=== PATIENT | male | born 1960 | race Caucasian/White ===

== ENCOUNTER 2019-01-03 13:18 | Outpatient (REF) | payer OTHER, SELFPAY ==
[2019-01-03 19:02] LABS: ALT 64 U/L (12-78); Anion Gap 10.2 mmol/L (3-11); BUN 13 mg/dL (7-18); CO2 26.8 mmol/L (21.0-32.0); CREATININE 0.86 mg/dL (0.70-1.30); Calcium 9.1 mg/dL (8.5-10.1); Chloride 103 mmol/L (98-107); Glucose 90 mg/dL (70-100); LDL CHOLESTEROL 99 mg/dL (<100); Potassium 4.1 mmol/L (3.5-5.1); Sodium 140 mmol/L (136-145)
== END 2019-01-03 13:38 ==
LOC: NCHCN 13:18
PROVIDERS: PCP Internal Medicine; Visit Provider Internal Medicine
DX: E78.5 Hyperlipidemia, unspecified (principal); M19.90 Unspecified osteoarthritis, unspecified site; Z98.61 Coronary angioplasty status
CPT/HCPCS: 80048; 83721; 84460

== ENCOUNTER 2020-07-26 13:17 | Outpatient (REF) | payer OTHER, SELFPAY ==
[2020-07-26 20:09] LABS: Creatine Kinase 268 U/L (39-308)
[2020-07-26 20:10] LABS: ESR 18 mm/hr (1-20)
[2020-08-03 15:15] LABS: Rheumatoid Factor <15 IU/mL (<15)
[2020-08-03 15:16] LABS: Lyme Ab w Rflx to Lyme Confirm Negative (Negative)
[2020-08-03 15:18] LABS: CRP, High Sensitivity 3.7 mg/L (<2.0)
== END 2020-07-26 13:37 ==
LOC: NCHCN 13:17
PROVIDERS: PCP Internal Medicine; Visit Provider Nurse Practitioner Family
DX: T14.8XXA Other injury of unspecified body region, initial encounter (principal); W57.XXXA Bitten or stung by nonvenomous insect and other nonvenomous arthropods, initial encounter; M25.50 Pain in unspecified joint
CPT/HCPCS: 82550; 85652; 86141; 86431; 86618

== ENCOUNTER 2021-10-19 03:01 | Outpatient (CLI) | payer MEDICARE, SELFPAY ==
[2021-10-19 09:52] VITALS: BP 165/93; PULSE 65; RESP 16; TEMP 36.7; O2SAT 95
[2021-10-19 11:00] VITALS: BP 136/77; PULSE 54; RESP 16; TEMP 36.4; O2SAT 95
== END 2021-10-19 03:02 | disposition home or self-care (01) ==
LOC: INF 03:02
PROVIDERS: PCP Internal Medicine; Visit Provider Family Medicine
DX: U07.1 COVID-19 (principal)
CPT/HCPCS: 96365; Q0047

== ENCOUNTER 2022-07-14 16:36 | Outpatient (REF) | payer MEDICARE, SELFPAY ==
[2022-07-14 19:16] LABS: Anion Gap 9.7 mmol/L (3-11); BUN 15 mg/dL (7-18); CO2 24.3 mmol/L (21.0-32.0); CREATININE 0.8 mg/dL (0.70-1.30); Calcium 9.6 mg/dL (8.5-10.1); Calculated LDL 116 mg/dL (<100); Chloride 102 mmol/L (98-107); Cholesterol 182 mg/dL (<200); Estimated GFR 99.44 (mL/min/1.73m2); Glucose 98 mg/dL (74-106); HDL Cholesterol 34 mg/dL (40-60); Potassium 4.1 mmol/L (3.5-5.1); Sodium 136 mmol/L (136-145); Triglyceride 164 mg/dL (<150)
== END 2022-07-14 16:37 | disposition home or self-care (01) ==
LOC: NCHCN 16:36
PROVIDERS: PCP Internal Medicine; Visit Provider Internal Medicine
DX: E11.9 Type 2 diabetes mellitus without complications (principal); I10 Essential (primary) hypertension
CPT/HCPCS: 80048; 80061

== ENCOUNTER 2022-10-19 16:23 | Outpatient (REF) | payer MEDICARE, SELFPAY ==
[2022-10-19 18:55] LABS: Hemoglobin A1C 5.9 % (<5.7)
== END 2022-10-19 16:24 | disposition home or self-care (01) ==
LOC: NCHCN 16:23
PROVIDERS: PCP Internal Medicine; Visit Provider Internal Medicine
DX: E11.9 Type 2 diabetes mellitus without complications (principal); I10 Essential (primary) hypertension
CPT/HCPCS: 83036

== ENCOUNTER 2023-07-25 15:55 | Outpatient (REF) | payer MEDICARE, SELFPAY ==
[2023-07-25 20:36] LABS: ALT 64 U/L (16-63); Anion Gap 10.2 mmol/L (3-11); BUN 16 mg/dL (7-18); CO2 24.8 mmol/L (21.0-32.0); CREATININE 1.5 mg/dL (0.70-1.30); Calcium 9.5 mg/dL (8.5-10.1); Chloride 104 mmol/L (98-107); Creatine Kinase 399 U/L (39-308); Estimated GFR 51.67 (mL/min/1.73m2); Glucose 115 mg/dL (74-106); Potassium 4.2 mmol/L (3.5-5.1); Sodium 139 mmol/L (136-145)
[2023-07-25 20:50] LABS: Hemoglobin A1C 6.4 % (<5.7)
[2023-07-25 20:58] LABS: Calculated LDL 76 mg/dL (<100); Cholesterol 177 mg/dL (<200); HDL Cholesterol 28 mg/dL (40-60); Triglyceride 367 mg/dL (<150)
== END 2023-07-25 15:56 | disposition home or self-care (01) ==
LOC: NCHCN 15:55
PROVIDERS: PCP Internal Medicine; Visit Provider Internal Medicine
DX: E11.9 Type 2 diabetes mellitus without complications (principal)
CPT/HCPCS: 80048; 80061; 82550; 83036; 84460

== ENCOUNTER → 2023-10-17 07:56 | Outpatient (BNVA) | payer MEDICARE, SELFPAY | PROVIDERS: PCP Internal Medicine; Referring Provider Internal Medicine; Visit Provider Podiatrist | DX: S90.821A Blister (nonthermal), right foot, initial encounter (principal); L60.0 Ingrowing nail; L84 Corns and callosities; B35.1 Tinea unguium; L60.3 Nail dystrophy; E11.9 Type 2 diabetes mellitus without complications | CPT/HCPCS: 99214 ==

== ENCOUNTER → 2023-10-30 08:15 | Outpatient (BNVA) | payer MEDICARE, SELFPAY | PROVIDERS: PCP Internal Medicine; Referring Provider Internal Medicine; Visit Provider Podiatrist | DX: L60.0 Ingrowing nail (principal); S90.821A Blister (nonthermal), right foot, initial encounter; E11.9 Type 2 diabetes mellitus without complications; M79.675 Pain in left toe(s); X58.XXXA Exposure to other specified factors, initial encounter | CPT/HCPCS: 11750 ==

== ENCOUNTER → 2023-11-14 08:12 | Outpatient (BNVA) | payer MEDICARE, SELFPAY | PROVIDERS: PCP Internal Medicine; Referring Provider Internal Medicine; Visit Provider Podiatrist | DX: Z09 Encounter for follow-up examination after completed treatment for conditions other than malignant neoplasm (principal); L60.0 Ingrowing nail; S90.821A Blister (nonthermal), right foot, initial encounter; E11.9 Type 2 diabetes mellitus without complications; M79.675 Pain in left toe(s) | CPT/HCPCS: 99214 ==

== ENCOUNTER → 2024-02-13 08:14 | Outpatient (BNVA) | payer MEDICARE, SELFPAY | PROVIDERS: PCP Internal Medicine; Referring Provider Internal Medicine; Visit Provider Podiatrist | DX: E11.8 Type 2 diabetes mellitus with unspecified complications (principal); L60.0 Ingrowing nail; S90.821A Blister (nonthermal), right foot, initial encounter; M79.675 Pain in left toe(s); X58.XXXA Exposure to other specified factors, initial encounter; M79.674 Pain in right toe(s); L60.3 Nail dystrophy; R20.2 Paresthesia of skin; R09.89 Other specified symptoms and signs involving the circulatory and respiratory systems; L65.9 Nonscarring hair loss, unspecified; R60.0 Localized edema | CPT/HCPCS: 11721 ==

== ENCOUNTER → 2024-06-10 08:30 | Outpatient (BNVA) | payer MEDICARE, SELFPAY | PROVIDERS: PCP Internal Medicine; Referring Provider Internal Medicine; Visit Provider Podiatrist | DX: E11.69 Type 2 diabetes mellitus with other specified complication (principal); M79.674 Pain in right toe(s); M79.675 Pain in left toe(s); L60.3 Nail dystrophy; B35.1 Tinea unguium; L84 Corns and callosities; R09.89 Other specified symptoms and signs involving the circulatory and respiratory systems; L60.8 Other nail disorders; L65.9 Nonscarring hair loss, unspecified; R60.0 Localized edema; I83.891 Varicose veins of right lower extremity with other complications; I83.892 Varicose veins of left lower extremity with other complications; R23.4 Changes in skin texture; R20.9 Unspecified disturbances of skin sensation; R20.2 Paresthesia of skin | CPT/HCPCS: 11056; 11721 ==

== ENCOUNTER → 2024-09-29 10:02 | Outpatient (BNVA) | payer MEDICARE, SELFPAY | PROVIDERS: PCP Internal Medicine; Referring Provider Internal Medicine; Visit Provider Podiatrist | DX: L60.3 Nail dystrophy; E11.8 Type 2 diabetes mellitus with unspecified complications; M79.674 Pain in right toe(s); M79.675 Pain in left toe(s); I73.89 Other specified peripheral vascular diseases; B35.1 Tinea unguium; L85.8 Other specified epidermal thickening; R09.89 Other specified symptoms and signs involving the circulatory and respiratory systems; L65.9 Nonscarring hair loss, unspecified; R60.0 Localized edema; L60.2 Onychogryphosis | CPT/HCPCS: 11056; 11721 ==

== ENCOUNTER → 2025-01-28 08:03 | Outpatient (BNVA) | payer MEDICARE, SELFPAY | PROVIDERS: PCP Internal Medicine; Referring Provider Internal Medicine; Visit Provider Podiatrist | DX: E11.8 Type 2 diabetes mellitus with unspecified complications (principal); L60.3 Nail dystrophy; M79.674 Pain in right toe(s); M79.675 Pain in left toe(s); I73.89 Other specified peripheral vascular diseases; R09.89 Other specified symptoms and signs involving the circulatory and respiratory systems; L65.9 Nonscarring hair loss, unspecified; I83.93 Asymptomatic varicose veins of bilateral lower extremities; R60.0 Localized edema; R23.8 Other skin changes; L60.2 Onychogryphosis; L85.8 Other specified epidermal thickening | CPT/HCPCS: 11055; 11721 ==

== ENCOUNTER 2025-01-28 20:49 | Outpatient (REF) | payer MEDICARE, SELFPAY ==
[2025-01-28 22:07] LABS: Anion Gap 6.6 mmol/L (3-11); BUN 13 mg/dL (7-18); CO2 27.4 mmol/L (21.0-32.0); CREATININE 0.9 mg/dL (0.70-1.30); Calcium 9.6 mg/dL (8.5-10.1); Calculated LDL 103 mg/dL (<100); Chloride 104 mmol/L (98-107); Cholesterol 174 mg/dL (<200); Estimated GFR 94.19 (mL/min/1.73m2); Glucose 101 mg/dL (74-106); HDL Cholesterol 30 mg/dL (>or=40); Potassium 4.5 mmol/L (3.5-5.1); Sodium 138 mmol/L (136-145); Triglyceride 206 mg/dL (<150)
== END 2025-01-28 20:50 | disposition home or self-care (01) ==
LOC: NCHCN 20:49
PROVIDERS: PCP Internal Medicine; Visit Provider Internal Medicine
DX: E11.9 Type 2 diabetes mellitus without complications (principal)
CPT/HCPCS: 80048; 80061

== ENCOUNTER 2025-04-20 15:32 | Outpatient (CLI) | payer MEDICARE, SELFPAY ==
--- NOTE | 2025-04-20 15:55 | DI.RAD_ITS ---
Exam(s) XR KNEE LT 4V AP,LAT,KEE,PAT EXAM: XR KNEE LT 4V AP,LAT,KEE,PAT CLINICAL HISTORY: left knee pain. TECHNIQUE: 2D digital imaging was performed. COMPARISON: No exams were available for comparison FINDINGS: Four views There is no evidence of acute fracture or obvious joint effusion. There are advanced osteoarthritic degenerative changes in the medial compartment with [id number] narrowing. There also advanced degenerative changes in the patellofemoral compartment. Less degenerative change evident in the lateral compartment. Bone density normal. No osseous lesions. Calcification in the femoral and popliteal arteries noted. IMPRESSION: No fractures nor obvious joint effusion. Advanced degenerative changes in the medial and patellofemoral compartments. DATA REPOSITORY: RADIATION DOSE DELIVERED:
--- NOTE | 2025-04-20 15:55 | DI.RAD_ITS ---
Exam(s) XR STANDING ALIGNMENT EXAM: XR STANDING ALIGNMENT CLINICAL HISTORY: left knee pain. TECHNIQUE: 2D digital imaging was performed. COMPARISON: CR XR KNEE 4 VIEW LEFT from 04/14/2019 FINDINGS: 3 views There is moderate-advanced narrowing of the medial compartment the left knee again noted, similar to 2019. The lateral compartment of the left knee continues to exhibit preserved height. There is mild narrowing of the medial compartment of the opposite-right knee, unchanged from 2019 and there is again noted preservation of height of the lateral compartment of the right knee. There are danced degenerative changes in the right hip. Moderate-advanced degenerative changes in the left hip. Ankles appear unremarkable. Bone density normal. No osseous lesions. IMPRESSION: Degenerative changes in the medial compartments of both knees but with minimal if any significant radiographic change compared to images of March 2019. There are also significant degenerative changes in the hip joints, more so on the right side. DATA REPOSITORY: RADIATION DOSE DELIVERED:
== END 2025-04-20 15:33 | disposition home or self-care (01) ==
LOC: DIORS 15:32
PROVIDERS: PCP Internal Medicine; Referring Provider Internal Medicine; Visit Provider Student in an Organized Health Care Education/Training Program
DX: M25.562 Pain in left knee (principal); M17.12 Unilateral primary osteoarthritis, left knee; Z98.890 Other specified postprocedural states; E11.9 Type 2 diabetes mellitus without complications; I10 Essential (primary) hypertension
CPT/HCPCS: 99214; 73564; 77073

== ENCOUNTER → 2025-06-02 07:59 | Outpatient (BNVA) | payer MEDICARE, SELFPAY | PROVIDERS: PCP Internal Medicine; Referring Provider Internal Medicine; Visit Provider Podiatrist | DX: L60.3 Nail dystrophy (principal); B35.1 Tinea unguium; M79.674 Pain in right toe(s); M79.675 Pain in left toe(s); E11.8 Type 2 diabetes mellitus with unspecified complications; I73.89 Other specified peripheral vascular diseases; R09.89 Other specified symptoms and signs involving the circulatory and respiratory systems; L65.9 Nonscarring hair loss, unspecified; I83.93 Asymptomatic varicose veins of bilateral lower extremities; R60.0 Localized edema; R23.4 Changes in skin texture; L60.2 Onychogryphosis; L85.8 Other specified epidermal thickening | CPT/HCPCS: 11055; 11721 ==

== ENCOUNTER 2025-06-05 01:07 | Outpatient (CLI) | payer MEDICARE, SELFPAY ==
[2025-06-05 12:26] LABS: HCT 47.0 % (40.0-50.0); HGB 16.7 g/dL (13.5-17.5); MCH 31.0 pg (27.0-33.0); MCHC 35.5 % (32.0-36.0); MCV 87 fL (80-95); MPV 9.6 fL (8.0-11.0); Platelet Count 256 10^3/uL (130-400); RBC 5.38 10^6/uL (4.36-5.78); RDW 13.0 % (11.8-14.1); RDW-SD 41.3 fL; WBC 9.57 10^3/uL (4.4-10.8)
[2025-06-05 13:22] LABS: Anion Gap 9.2 mmol/L (3-11); BUN 11 mg/dL (7-18); CO2 25.8 mmol/L (21.0-32.0); Calcium 9.3 mg/dL (8.5-10.1); Chloride 104 mmol/L (98-107); Estimated GFR 97.61 (mL/min/1.73m2); Glucose 104 mg/dL (74-106); Potassium 4.4 mmol/L (3.5-5.1); Sodium 139 mmol/L (136-145)
== END 2025-06-05 01:08 | disposition home or self-care (01) ==
LOC: LBO 01:08
PROVIDERS: PCP Internal Medicine; Visit Provider Student in an Organized Health Care Education/Training Program
DX: M17.12 Unilateral primary osteoarthritis, left knee (principal); Z01.818 Encounter for other preprocedural examination; I73.9 Peripheral vascular disease, unspecified
CPT/HCPCS: 36415; 80048; 85027

== ENCOUNTER 2025-06-26 09:50 | Day surgery (SDC) | payer MEDICARE, SELFPAY ==
[2025-06-26] VITALS (28 sets, daily range): BP systolic 145–177; BP diastolic 62–89; PULSE 59–78; RESP 9–24; TEMP 36.4–36.8; O2SAT 93–98; BMI 39.2
--- NOTE | 2025-06-26 07:29 | W.PM.DSUDISC ---
Date of service: 06/26/25 Discharge Plan Disposition Patient Disposition: Home Condition: Good Discharge Details Reason For Visit: L MORR Attending Provider: Carlos Cee Primary Care Provider: Robbin Ross Home Meds and New Rx's Prescriptions: New meloxicam 15 mg tablet 15 mg PO DAILY Qty: 30 0RF aspirin 81 mg tablet,delayed release (DR/EC) 81 mg PO BID Qty: 60 0RF acetaminophen 500 mg tablet 1,000 mg PO TID Qty: 90 0RF dexamethasone 4 mg tablet 4 mg PO DAILY Qty: 2 0RF gabapentin 300 mg capsule 300 mg PO QHS Qty: 14 0RF oxycodone 10 mg tablet 10 mg PO Q4H MDD 6 tabs PRN (Reason: pain) Qty: 18 0RF pantoprazole 40 mg tablet,delayed release (DR/EC) 40 mg PO DAILY Qty: 14 0RF Continued famotidine 40 mg tablet 40 mg PO DAILY nitroglycerin [Nitrostat] 0.4 mg tablet, sublingual 0.4 mg sublingual Q5M PRN Rx Instructions: do not exceed 3 doses per episode amlodipine 5 mg tablet 5 mg PO DAILY enalapril maleate 10 mg tablet 10 mg PO DAILY fluticasone propionate 50 mcg/actuation blister with device 2 inh inhalation DAILY metoprolol succinate 200 mg tablet extended release 24 hr 200 mg PO DAILY pravastatin 40 mg tablet 80 mg PO DAILY epinephrine [EpiPen] 0.3 mg/0.3 mL auto-injector 0.3 mg IM ONCE Rx Instructions: as a single dose; may repeat once Mounjaro 10 mg/0.5 mL pen injector 10 mg subcut QWEEK ketoconazole 2 % cream 1 applic topical DAILY Qty: 60 5RF Rx Instructions: Apply to toenails once daily; apply separately from Urea. cetirizine [Zyrtec] 10 mg tablet 10 mg PO DAILY PRN docusate sodium [Colace] 100 mg capsule 100 mg PO BID Emergen-C Immune Plus 1,000 mg powder effervescent in packet 1 packet PO DIRECTED PRN Discontinued hydrocodone-acetaminophen 7.5-325 mg tablet 1 tab PO BID PRN aspirin 81 mg tablet,delayed release (DR/EC) 81 mg PO DAILY Discharge Instructions Additional Instructions: Total Knee Discharge Instructions Activity: The most important activity is to walk and to work on gentle motion (both flexion and extension). You should try to take short walks a few times a day. It is important that when resting you work on keeping the knee straight. Avoid putting a pillow behind the knee as this will encourage flexion. Work on range of motion exercises as provided by Physical Therapy. - Start outpatient physical therapy within 2 weeks. - You should wear the KIANA hose on both legs for 2 weeks. You may remove these at night. You may also use any compression sock in place of the KIANA hose. - Utilize [employer] to review exercises, see videos on exercises and obtain basic information pertaining to your surgery and your recovery. Dressing: Remove the Rj wrap by 2 days after your surgery and put on the KIANA stocking given to you from the hospital. Keep the surgical dressing (underneath the RJ wrap) in place for at least one week. After the first week it may be removed and replaced with light gauze and tape or nothing. The wound and dressing may get wet after 3 days but avoid soaking the dressing or otherwise it will need to be changed. Many people prefer covering the dressing with cling wrap (saran wrap) to minimize it from getting soaked. If it gets wet, just pat dry. If it starts to peel off then it will need to be changed. Medications: - You should take Tylenol and anti-inflammatory meloxicam as your primary pain control medications. - You have been prescribed a stronger pain medication Oxycodone for breakthrough pain, take as needed as prescribed. - You have also been prescribed a stomach acid reduction agent Pantoprozole to help reduce stomach acid and reflux. - You have been prescribed Gabapentin to take at night for restlessness and nerve pain. - You will be taking Aspirin 81mg twice a day for DVT prevention unless instructed otherwise. - You have also been prescribed Decadron to take to control post-operative nausea and pain. You will start this tomorrow. - If you have constipation you should take Colace or Miralax (both [id number]). It takes most people 3-4 days to have a bowel movement. Follow-up: 2 weeks If you have any acute concerns or questions, please do not hesitate to contact the office at [phone]. You may contact Dr. Cee with any questions after hours through the hospital at [phone] or on his cell phone at [phone]. Referrals: Carlos Cee MD [ [facility] STAFF PHYSICIAN, Orthopaedic Surgical] Equipment/Supplies: Walker Activity:: Activity as Tolerated Diet:: As Tolerated Discharge Orders Discharge Orders: Discharge Order (Routine); Ordered 06/26/25 Ordered By: Daniel Rojo DS: Diagnosis Discharge Diagnosis (1) Left knee DJD: Status: Chronic
[2025-06-26] MEDS: Acetaminophen 500 MG TAB 1000 MG PO (10:20)
[2025-06-26] MEDS: Gabapentin 300 MG CAP PO (10:20)
[2025-06-26] MEDS: Lactated Ringers 1,000 ML 80 ML IV (10:20)
[2025-06-26] MEDS: Celecoxib 200 MG CAP 400 MG PO (10:20)
--- NOTE | 2025-06-26 10:47 | W.ANESPRE ---
General Info Date of Service Date Performed: 06/26/25 Height: 5 ft 10 in Weight: 123.9 kg Body Mass Index (BMI): 39.2 Surgical Procedure: Operation Date: 06/26/25 12:10 Proposed Procedure Side Surgeon p Knee Total Arthroplasty Left Carlos Cee MD Actual Procedure Side Surgeon p Knee Total Arthroplasty Left Carlos Cee MD Pre-Op Diagnosis Post-Op Diagnosis Left knee DJD Meds Allergies and Home Medications Allergies Allergy/AdvReac Type Severity Reaction Status Date / Time bee venom protein (honey bee) Allergy Severe Anaphylaxis Verified 06/26/25 10:01 Home Medication ?Medication ?Instructions ?Recorded amlodipine 5 mg tablet 5 mg PO DAILY 08/08/22 famotidine 40 mg tablet 40 mg PO DAILY 08/08/22 nitroglycerin 0.4 mg sublingual 0.4 mg sublingual Q5M PRN 08/08/22 tablet (Nitrostat) metoprolol succinate 200 mg 200 mg PO DAILY 03/15/23 tablet,extended release 24 hr enalapril maleate 10 mg tablet 10 mg PO DAILY 11/14/23 fluticasone propionate 50 2 inh inhalation DAILY 06/09/24 mcg/actuation blister powder for inhalation epinephrine 0.3 mg/0.3 mL 0.3 mg IM ONCE 05/29/25 injection, auto-injector (EpiPen) tirzepatide 10 mg/0.5 mL 10 mg subcut QWEEK 05/29/25 subcutaneous pen injector (Mounjaro) ketoconazole 2 % topical cream 1 applic topical DAILY #60 grams 06/02/25 ascorbic acid 1,000 1 packet PO DIRECTED PRN 06/05/25 cc-tnuzdzzodlnc-chjxlyxi powder effervescent pack (Emergen-C Immune Plus) cetirizine 10 mg tablet (Zyrtec) 10 mg PO DAILY PRN 06/05/25 docusate sodium 100 mg capsule 100 mg PO BID 06/05/25 (Colace) pravastatin 40 mg tablet 80 mg PO DAILY 06/05/25 acetaminophen 500 mg tablet 1,000 mg (2 x 500 mg) PO TID #90 06/26/25 tabs aspirin 81 mg tablet,delayed 81 mg PO BID #60 tabs 06/26/25 release aspirin 81 mg tablet,delayed 81 mg PO DAILY 06/26/25 release (Adult Low Dose Aspirin) dexamethasone 4 mg tablet 4 mg PO DAILY #2 tabs 06/26/25 gabapentin 300 mg capsule 300 mg PO QHS #14 caps 06/26/25 hydrocodone 7.5 mg-acetaminophen tab 06/26/25 325 mg tablet meloxicam 15 mg tablet 15 mg PO DAILY #30 tabs 06/26/25 oxycodone 10 mg tablet 10 mg PO Q4H PRN pain #18 tabs 06/26/25 pantoprazole 40 mg tablet,delayed 40 mg PO DAILY #14 tabs 06/26/25 release Current Visit Medications: Current Medications Generic Name Dose Route Start Last Admin Trade Name Freq PRN Reason Stop Dose Admin Acetaminophen 1,000 mg 06/26/25 06:00 06/26/25 10:20 Acetaminophen 500 Mg Tab PO 06/26/25 23:59 1,000 mg PREOP JUAN C Administration Acetaminophen 1,000 mg 06/26/25 07:28 Acetaminophen 500 Mg Tab PO 07/26/25 07:27 TID PRN PRN Analgesia Celecoxib 400 mg 06/26/25 06:00 06/26/25 10:20 Celecoxib 200 Mg Cap PO 06/26/25 23:59 400 mg PREOP JUAN C Administration Docusate Sodium 100 mg 06/26/25 07:28 Docusate Sodium 100 Mg Cap PO 07/26/25 07:27 BID PRN PRN Constipation Gabapentin 300 mg 06/26/25 06:00 06/26/25 10:20 Gabapentin 300 Mg Cap PO 06/26/25 23:59 300 mg PREOP JUAN C Administration Ringer's Solution 1,000 mls @ 80 mls/hr 06/26/25 06:00 06/26/25 10:20 IV 06/26/25 23:59 80 mls/hr INFUSION JUAN C Administration Cefazolin Sodium/Dextrose 2 gm in 50 mls @ 100 mls/hr 06/26/25 06:00 Ancef Duplex IVPB 06/26/25 23:59 PREOP JUAN C Tranexamic Acid/Sodium Chloride 1,000 mg in 100 mls @ 600 mls/hr 06/26/25 06:00 IVPB 06/26/25 23:59 PREOP JUAN C IV Miscellaneous Supplies 1 each 06/26/25 06:00 Iv Access IV 06/26/25 23:59 DIRECTED JUAN C Ondansetron HCl 4 mg 06/26/25 07:28 Ondansetron 4 Mg/2 Ml Vial IVP 07/26/25 07:27 Q6H PRN PRN Nausea Oxycodone HCl 0 mg 06/26/25 07:28 Oxycodone 5 Mg Tab PO 07/26/25 07:27 Q3H PRN PRN Pain Polyethylene Glycol 17 gm 06/26/25 07:28 Polyethylene Glycol 3350 17 Gm Packet PO 07/26/25 07:27 BID PRN PRN Constipation Sodium Chloride 0 ml 06/26/25 06:00 Normal Saline Flush 10 Ml Syr IV 06/26/25 23:59 PRN PRN Sodium Chloride 0 ml 06/26/25 06:00 Normal Saline 10 Ml Vial IJ 06/26/25 23:59 DIRECTED PRN Sterile Water 0 ml 06/26/25 06:00 Water,Injection,Sterile 10 Ml Vial IJ 06/26/25 23:59 DIRECTED PRN PFSH Active Problems Active Problems: Problem Status Onset Code Allergic rhinitis Acute J30.9 Adjustment disorder Chronic F43.20 Nicotine dependence Acute F17.200 Hyperlipemia Acute E78.5 Left knee DJD Chronic M17.12 Peripheral vascular disease Chronic I73.9 Edema Acute R60.9 Degeneration of cervical intervertebral disc Acute M50.30 Obesity Chronic E66.9 Blister (nonthermal), right foot, initial encounter Acute S90.821A Ingrown toenail Acute L60.0 Type 2 diabetes mellitus Acute E11.9 Corns and callosities Acute L84 Toe pain, left Acute M79.675 Toe pain, right Acute M79.674 CAD (coronary artery disease) Chronic I25.10 Hypercholesterolemia Acute E78.00 Hypertension Chronic I10 Onychomycosis Acute B35.1 GERD (gastroesophageal reflux disease) Chronic K21.9 Nail dystrophy Acute L60.3 Surgical History Surgical History History of arthroscopy of left knee (05/12/19) History of angioplasty cardiac angioplasty with stents 2000-Follows up with cardiology annually with Dr. Herrera at [facility] 03/2025 was last follow up per History of eye surgery History of cholecystectomy Tobacco Smoking/Tobacco Use Status: Former Tobacco Use Passive smoking exposure: No Alcohol Alcohol Intake: current Alcohol intake frequency: holidays/special occasions only Alcohol type: beer Substance Use Substance use: Occasionally Substance use type: marijuana Details: Gummies: t-1 . Alcohol: t-2, one bear Vital Signs and Lab Results Vital Signs Most Recent Vital Signs in EMR: Most Recent Vital Signs Temp Pulse Resp BP Pulse Ox 36.4 C L 73 20 155/89 H 98 06/26/25 10:08 06/26/25 10:08 06/26/25 10:08 06/26/25 10:08 06/26/25 10:08 Point of Care Results Point of Care Results: Finger Stick Blood Glucose 99 06/26/25 10:14 Lab Results Complete Blood Count: WBC, (4.4-10.8) 9.57 10^3/uL 06/05/25, 12:09 RBC, (4.36-5.78) 5.38 10^6/uL 06/05/25, 12:09 Hgb, (13.5-17.5) 16.7 g/dL 06/05/25, 12:09 Hct, (40.0-50.0) 47.0 % 06/05/25, 12:09 Plt Count, (130-400) 256 10^3/uL 06/05/25, 12:09 Complete Metabolic Panel: Sodium, (136-145) 139 mmol/L 06/05/25, 12:09 Potassium, (3.5-5.1) 4.4 mmol/L 06/05/25, 12:09 Chloride, (98-107) 104 mmol/L 06/05/25, 12:09 Carbon Dioxide, (21.0-32.0) 25.8 mmol/L 06/05/25, 12:09 BUN, (7-18) 11 mg/dL 06/05/25, 12:09 Creatinine, (0.70-1.30) 0.8 mg/dL 06/05/25, 12:09 Est GFR (CKD-EPI 2020), (mL/min/1.73m2) 97.61 06/05/25, 12:09 Calcium, (8.5-10.1) 9.3 mg/dL 06/05/25, 12:09 Glucose, (74-106) 104 mg/dL 06/05/25, 12:09 Anesthesia Assessment and Plan Anesthesia History Personal History: No History of Anesthesia Complications Family History: No Family History of Anesthesia Complications Exercise Tolerance Exercise Tolerance: Metabolic Equivalents>4 Pertinent Negatives Pertinent Negatives: No Symptoms of GERD Cardiac & Pulmonary Exam Cardiac Exam: Normal S1/S2 Heart Sounds Pulmonary Exam: Clear Bilateral Breath Sounds Implantable Cardiac Device Does patient have a Pacemaker or an ICD?: No Airway Exam Known Difficult Airway: No Mallampati Class: 2 Mouth Opening: Normal (> 3cm) Thyromental Distance: Less than 3 cm Neck Range of Motion: Full ROM Neck Circumference: Normal Teeth Condition: Normal Dentition and Generalized Poor Dentition ASA Classification ASA Score: ASA 3 Emergency Case?: No NPO Status NPO Status: NPO Clears >2 hours, Solids >8 hours Anesthesia Plan Resuscitation Status: Full Code Anesthesia Technique: Spinal Anesthesia Airway Planned: Natural Airway Pain Management: Surgeon and patient request nerve block Monitors Used: Standard Monitors
[2025-06-26] MEDS: ceFAZolin 2 GM/50 ML BAG IVPB (11:09)
[2025-06-26] MEDS: TRANEXAMIC ACID/SOD. CHL. 1,000 MG/100 ML BAG 600 MG IVPB (11:30)
--- NOTE | 2025-06-26 13:04 | W.PM.OP ---
Operative Note Operative Note PRE-OP DIAGNOSIS: LEFT Knee Osteoarthritis POST-OP DIAGNOSIS: same PROCEDURE: Left Total Knee Replacement SURGEON: Carlos Cee BALANCE WHEEL ARM BURNISHER: Harmony Rojo ANESTHESIA TYPE: Spinal Refer to Anesthesia Record ESTIMATED BLOOD LOSS: 50 PATHOLOGY: none sent TOURNIQUET TIME: 0 COMPLICATIONS: None Patient was transported to: PACU Patient's condition: stable Implants: 1. Depuy Attune Cementless Cruciate Retaining Femoral Component, Size 7 2. Depuy Attune Cementless Fixed Bearing Tibial Component, Size 8 3. Depuy Attune 7x6mm CR/FB Poly 4. Depuy Attune Patellar Component, Size 41mm Indications: I have seen Eddie in clinic for symptoms of knee arthritis, confirmed with radiographic findings. He has exhausted nonoperative methods and was having significant limitations in daily function and desired better function and less pain. I discussed the technical details of a knee replacement. I explained the risks of the procedure to include, but not limited to, bleeding, infection, pain, stiffness, fracture, damage to nerves and vessels, damage to muscles and tendons, loosening, need for repeat procedure, blood clot and cardiopulmonary demise. Despite these risks, Eddie elected to proceed. Findings: There was significant signs of arthritis throughout the knee involving all 3 compartments. Procedure Description: Eddie was greeted in the preoperative holding area where the correct side was identified and marked. The consent was reviewed with the patient and signed. The history and physical was updated. All questions were answered. Preoperative medications were administered: Acetaminophen 1000mg, Celebrex 400mg, and Gabapentin 300mg. An adductor canal block was then administered by the anesthesia team in the DSU. He was taken back to the operating room. A spinal anesthestic was then administered. The patient was placed into the supine position on the operating room table. Posts were placed for positioning during the procedure. All bony prominences were well padded. Prophylactic antibiotics in the form of Cefazolin were administered. 1g of Tranxemic Acid was given intravenously within 30 minutes of incision. The left leg was then prepped with Chloraprep and draped in a standard fashion with impervious stockinette. A second prep with Chloraprep was performed prior to application of Iodine impregnated skin protection. A timeout to confirm correct identity, side and site, procedure, allergies, anesthesia, and medical concerns was performed. With the knee in some flexion, a midline incision was made overlying the knee. Full thickness skin flaps were raised once the extensor mechanism was encountered. These were raised medially and laterally. Any bleeding was controlled with electrocautery. Once the extensor mechanism was fully exposed, a medial parapatellar arthrotomy was performed in a flexed position. All bleeding from the arthrotomy and the geniculate arteries was coagulated. A medial subperiosteal peel was performed with electrocautery to the midcoronal plane. Due to the significant varus deformity the entire medial tibial plateau was exposed. The fat pad was removed while keeping the patellar tendon protected. The anterior distal femur synovium was removed for later visualization. The ACL and PCL were resected and the anterior horn of the lateral meniscus was transected. The knee was then flexed with the patella everted. Large osteophytes from the tibia were removed. Large osteophytes from the femur were removed. Using a step drill, and based on preoperative templating, the femoral canal was entered. This was done with a step drill without any difficulty. The intramedullary distal femoral cut guide was inserted, set to a 6 degree valgus cut and 9mm cut thickness. The distal femoral cut guide was then held in position and pinned. With the soft tissues protected, the distal cut was performed. This was passed over a few times to ensure a planar cut. I then turned attention to the tibia. The extramedullary guide was placed onto the leg. The distal aspect was slid medial to adjust for position of center of ankle and stay in line with shaft of the tibia. Approximately 5 degrees of posterior slope was kept in the proximal cutting guide. The center of the guide was aligned with the PCL. The stylus was used to assess cut thickness. The medial side, most involved side, was set for a 4mm cut. This was then held in position and pinned into place with 2 additional pins and a cross pin for stability. The medial and lateral collateral ligaments were protected and the cut was performed. With this completed, it was assessed and noted to be of appropriate dimensions. The guide was removed. A spacer block was inserted and the knee was brought into extension. The 6mm spacer block provided full extension, without hyperextension and with stability of both the medial and lateral collateral ligaments was assessed. The pins from the femur and the tibia were then removed. The distal femur was then sized. The anterior stylus was placed onto the lateral ridge of the anterior femur. This indicated a size 7 femur. The external rotation of the guide was adjusted to 0 degrees to match the epicondylar axis, perpendicular to [place]?s line. The 4-in-1 cutting guide was the placed. The posterior medial femur cut was evaluated and appeared of good thickness. The spacer block was inserted underneath the cutting guide and stability was confirmed in 90 degrees of flexion. An ester wing was used to confirm appropriate position of the anterior cut to avoid notching. This cutting guide was ensured to be flush on the cut surface and then pinned into place with headed pins. While protecting the soft tissues, quad tendon, and collateral ligaments, the anterior and posterior cuts were performed with a saw. The central two pins were removed and the posterior and anterior chamfers were cut next. The notch-cutting guide was placed. This was pinned to lateralize the femoral component as much as possible while keeping it flush on the cut surface. This was then pinned into position. A reciprocating saw was used to make the notch cut. A rasp smoothed the cut surfaces. The medial and lateral menisci were removed. A trial femoral component was then inserted, impacted down to the cut surfaces, and the lug holes were drilled. A provisional trial tibial component was placed and the knee was brought through range of motion. There was noted to be excellent extension and flexion. There was no significant instability. The patella was tracking without thumbs. A size 6mm polyethylene component provided the best range of motion and stability with less than 2mm gapping with medial and lateral stress and full extension without significant hyperextension. The tibial cut surface was fully exposed. The tibia was then sized as a 8. The tibia had been previously marked during trialing to correspond to the center of the tibial component to help with rotation. The trial was aligned to this harmony, approximately rotated to the medial 1/3rd of the tibial tubercle. The trial was pinned into place. The tibia was prepared with a reamer and a keel punch and lug holes. The knee was then brought into extension and the patella was measured as 31mm. Using the patellar clamp and cut guide, this was resected to a flat surface with at least 13mm of thickness remaining. The size 41mm patella fit the best. This was oriented and then clamped into position. The lugs were drilled. The trial components were removed. The final components were opened on the back table. The periosteal and capsular tissues, especially posteriorly, around the knee were then systematically injected with a periarticular cocktail consisting of 246mg of Ropivacaine, 0.5mg of Epinephrine, 0.08mg of Clonidine, and 30mg of Ketorolac, diluted to 100cc. On the back table, with the implants opened. The cement was mixed. One batch of high viscosity cement was prepared with vacuum assistance. After the cement was ready a small amount was placed on the cut surface of the patella and the patellar button was clamped into position and held. The cementless knee components were placed. Starting with the tibial component, the tibia was subluxed anteriorly and the lug holes of the component were lined up. The tibia was then impacted with an impactor and mallet until the tibial component was in contact with the tibia. Then, the femoral component was inserted. The lug holes were aligned and the component was impacted into position. The final polyethylene component was inserted. The knee was irrigated with Surgiphor Betadine solution. This was allowed to sit in the knee for 3 minutes and then it was irrigated out with saline. After the cement had finally cured, approximately 15min, the clamp was removed from the patella and the knee was taken through range of motion. The patella was tracking with a no-thumbs technique. A complete synovectomy was performed around the periphery of the patella. The capsule was then reapproximated with a No. 1 Vicryl at multiple locations. The capsule was finally closed with a No. 2 Stratafix, barbed suture. Deep tissues were then reapproximated with 0 Vicryl and 2-0 Vicryl. The skin was closed with a running 3-0 Monocryl in a subcuticular fashion. This was reinforced with Exofin mesh. A Mepilex silver dressing was applied along with a [id number] SYDNIE wrap. A CryoCuff was applied. Eddie was transferred to the hospital bed without difficulty an suffering no apparent complication. Eddie has a good prognosis. Physical therapy will start today and without restrictions, weight-bearing as tolerated. Aspirin 81mg BID will be used for DVT prophylaxis. Date of Procedure: 06/26/25
[2025-06-26] MEDS: fentaNYL 100 MCG/2 ML VIAL IVP ×2 (13:21→13:32)
--- NOTE | 2025-06-26 13:52 | W.ANESPOSTOP ---
Postoperative Evaluation Date, Time and Location Date Performed: 06/26/25 Time Performed: 13:52 Patient Location: Day Surgery Unit Vital Signs Most Recent Imported Vital Signs: Most Recent Vital Signs Temp Pulse Resp BP Pulse Ox 36.4 C L 59 L 17 157/71 H 96 06/26/25 13:17 06/26/25 13:31 06/26/25 13:31 06/26/25 13:31 06/26/25 13:31 Pain Score Most Recent Pain Score: Most Recent Pain Score Pain Level 3 06/26/25 13:34 Assessment Mental Status: Awake (Alert & Oriented to Patient Baseline) Airway and Respiratory Function: Patent airway with normal (patient baseline) respiratory exam Cardiovascular Function: Hemodynamically Stable Hydration Status: Adequately Hydrated Nausea & Vomiting: No Nausea or Vomiting Pain: Pain is tolerable per patient Peripheral Nerve Block: Regional nerve block not resolved at time of post operative discharge
[2025-06-26] MEDS: oxyCODONE 5 MG TAB PO (14:11)
[2025-06-26] MEDS: Tranexamic Acid 650 MG TAB 1300 MG PO (14:11)
--- NOTE | 2025-06-26 15:42 | PT.INIE ---
PT Notes Visit Reasons: L TKR Physical Therapy Day Surgery Initial Evaluation Date: 06/26/25 Referring Doctor: KEELY Hoskins PT Orders: PT CONSULT Precautions: standard Patient Profile/Admitting Diagnosis: Eddie is a 64-year-old male with left knee OA, now status post left TKA, postop day 0. Social History/Home Situation: Patient lives in a private home with his , who is present and supportive at time of consultation. They have a multilevel home, however have set up the first floor for use during his recovery. Eddie is normally active and independent at baseline, ambulating without a device. Equipment Owned/DME: none Subjective: Eddie is agreeable to PT intervention. Reports well-managed pain. Objective: General Observation: Resting in bed with left lower extremity elevated, Rj wrap in place. IV in L UE. Otherwise no lines. Mental Status: A&Ox3 Pain: Denies ROM: Right Upper Extremity: WFL Left Upper Extremity: WFL Right Lower Extremity: WFL Left Lower Extremity: demonstrates 0-80* flexion functionally Strength: Right Upper Extremity: WFL Left Upper Extremity: WFL Right Lower Extremity: Hip flexion 5/5. Quads 5/5. Ankle DF 5/5 Left Lower Extremity: Able to perform SLR without extension lag. Able to pump ankles and wiggle toes. Sensation: intact distally Bed Mobility/Transfers: Supine to sit : supervision Sit to stand : CGA initially; supervision by end of session Stand to sit : supervision Bed to chair : CGA with FWW Gait: Ambulates 100 feet x 2 with FWW. Requires CGA and cueing initially, progressing to SBA by end of session. Stairs: Manages therapeutic stairs, 4 inches x 3, 6 inches x 2 with bilateral rails Balance: Static Sitting: Good Dynamic Sitting: Good Static Standing: Good Dynamic Standing: Fair Informed Consent/Education: Patient instructed in purpose of PT consult. Packet containing [] exercise protocol has been given to patient. Education and training on initial set of exercises that can be done at home have been completed with patient. Treatment: Initial evaluation (93537) Therapeutic exercises (06102 x 1): Instructed in the following for home completion, and provided with handout with written instructions: Ankle pumps 10 times Quad sets 10 times Glutes sets 10 times SLR 10 times Heel slides 10 times Passive extension hang x 3 minutes Walker fitted to appropriate height, and patient educated on equipment management. Instructed in gait, stair, and transfer technique as outlined above. Assessment: Patient presents with clinical signs and symptoms consistent with postop status that have resulted to mobility limitations, gait instability, generalized weakness, and impairment of motor control as demonstrated by the following impairment level findings: 1. Decreased strength to left knee major muscle groups 2. Impaired standing balance 3. Limitation of joint range of motion in left knee Gait impairments 4. Impairments are contributing to the following functional limitations: 1. Inability to safely ambulate without assistive device 2. Increase completion time for mobility ADL performance 3. Increased fall risk Patient is assessed as low complexity based on the following: History: as above Examination: Demonstrable impairment in strength, balance, and mobility level with underlying impairments and functional limitations as documented above Presentation: stable Decision Making: low complexity Goals: N/A. PT evaluation and 1-2 treatment sessions only for functional mobility training using recommended AD and for HEP instruction. Plan of Care/Treatment Plan: N/A. PT evaluation and 1-2 treatment session only for functional mobility training using recommended AD and for HEP instruction. DISCHARGE RECOMMENDATIONS: Home with FWW, outpatient PT starting in 2 weeks as per Ortho recommendations TREATMENT CODE/TIME: [id number] (57391, 30659) Thank you for the opportunity to participate in the care of this patient. Shantel Buchanan, PT, DPT [facility] Please sign an return this page within 30 days if you agree with the above POC. Thank you! Physician Signature Date [facility] All Active Problems Allergic rhinitis (Acute) Adjustment disorder (Chronic) Nicotine dependence (Acute) Hyperlipemia (Acute) Left knee DJD (Chronic) Peripheral vascular disease (Chronic) Edema (Acute) Degeneration of cervical intervertebral disc (Acute) Obesity (Chronic) Blister (nonthermal), right foot, initial encounter (Acute) Ingrown toenail (Acute) Type 2 diabetes mellitus (Acute) Corns and callosities (Acute) Toe pain, left (Acute) Toe pain, right (Acute) CAD (coronary artery disease) (Chronic) Hypercholesterolemia (Acute) Hypertension (Chronic) Onychomycosis (Acute) GERD (gastroesophageal reflux disease) (Chronic) Nail dystrophy (Acute) Surgical History History of arthroscopy of left knee (05/12/19) History of angioplasty cardiac angioplasty with stents 2000-Follows up with cardiology annually with Dr. Herrera at [facility] 03/2025 was last follow up per History of eye surgery History of cholecystectomy
--- NOTE | 2025-08-07 07:50 | W.ANESNERVE ---
Nerve Block Single Injection Procedure Date and Time Date Performed: 06/26/25 Procedure Start: 10:58 Location Where Procedure Performed Procedure Location: Day Surgery Unit Reason Performed: Postoperative Analgesia Requesting Provider: Carlos Cee Timeout Performed Timeout Performed: Yes Monitoring Used ECG, Blood Pressure, SpO2 and See EMR for corresponding vital signs Sterility Sterility: Hand Hygiene, Surgical Cap, Surgical Mask, Sterile Gloves and Chlorhexidine Sedation Given During Procedure Sedation Given (Indicate Dose Given): No Sedation given Patient Mental Status Patient Mental Status: Awake Nerve Block 1st Nerve Block: Laterality: Left Block Type: Adductor Canal Ultrasound Image Saved?: Yes Needle / Catheter Used: 100mm SonoPlex II Local Anesthetic Bolus (Indicate Dose Given): Lidocaine used for local infiltration of skin, Injected in 3-5ml increments after negative blood aspiration, Bupivacaine 0.25% Dose:: 10ml and Exparel Dose:: 10ml Additives (Indicate Dose Given): None Ultrasound: Sterile probe cover and gel used Nerve Stimulator: Supplement to Ultrasound use and No twitch or parasthesia noted < 0.5 mA Paresthesia: None Procedure Tolerated: No Complications and Patient tolerated well Procedure Outcome: Successful Performed By: Reg Johns
== END 2025-06-26 16:03 | disposition home or self-care (01) ==
LOC: SUR 09:50
PROVIDERS: PCP Internal Medicine; Visit Provider Student in an Organized Health Care Education/Training Program
PROC: (CPT 27447; principal; 2025-06-26 12:00)
DX: M17.12 Unilateral primary osteoarthritis, left knee (principal)
CPT/HCPCS: 27447; 64447; 97110; 97161; C1776; J0665; J0666; J0690; J1100; J2250; J2401; J2405; J2704; J3010

== ENCOUNTER 2025-07-09 16:01 | Outpatient (CLI) | payer MEDICARE, SELFPAY ==
--- NOTE | 2025-07-09 14:45 | DI.RAD_ITS ---
Exam(s) XR KNEE LT 1V XR STANDING ALIGNMENT EXAM: XR STANDING ALIGNMENT CLINICAL HISTORY: 1ST POST OP S/P L TKA. TECHNIQUE: 2D digital imaging was performed. Standing AP views were performed from the pelvis through the ankles. COMPARISON: CR XR STANDING ALIGNMENT from 04/20/2025 CR XR KNEE LT 4V AP,LAT,KEE,PAT from 04/20/2025 CR XR KNEE LT 1V from 07/09/2025 FINDINGS: BONES: No acute fracture is present. No bony destructive lesion is seen. Leg length discrepancy: No significant overall leg length discrepancy. JOINTS: Knees: Status post placement of a left knee prosthesis. The alignment appears satisfactory. There are mild degenerative changes of the right knee. The ankle joints are unremarkable. Hips: Severe bilateral hip joint space narrowing with prominent periarticular spurring. SOFT TISSUE: Vascular calcifications. IMPRESSION: Status post placement of left knee prosthesis. No significant leg length discrepancy. DATA REPOSITORY: RADIATION DOSE DELIVERED:
== END 2025-07-09 16:02 | disposition home or self-care (01) ==
LOC: DIORS 16:01
PROVIDERS: PCP Internal Medicine; Referring Provider Internal Medicine; Visit Provider Student in an Organized Health Care Education/Training Program
DX: Z47.1 Aftercare following joint replacement surgery (principal); Z96.652 Presence of left artificial knee joint; L03.116 Cellulitis of left lower limb
CPT/HCPCS: 99024; 73560; 77073

== ENCOUNTER → 2025-08-06 14:45 | Outpatient (BNVA) | payer MEDICARE, SELFPAY | PROVIDERS: PCP Internal Medicine; Referring Provider Internal Medicine; Visit Provider Student in an Organized Health Care Education/Training Program | DX: T84.82XA Fibrosis due to internal orthopedic prosthetic devices, implants and grafts, initial encounter (principal) | CPT/HCPCS: 99213 ==

== ENCOUNTER 2025-08-19 11:16 | Day surgery (SDC) | payer MEDICARE, SELFPAY ==
[2025-08-19] VITALS (17 sets, daily range): BP systolic 126–178; BP diastolic 70–115; PULSE 73–87; RESP 11–24; TEMP 36.1–37.1; O2SAT 95–97; BMI 38.5
--- NOTE | 2025-08-19 11:39 | W.PM.DSUDISC ---
Date of service: 08/19/25 Discharge Plan Disposition Patient Disposition: Home Condition: Good Discharge Details Reason For Visit: MAYI Mayen TKR Attending Provider: Carlos Cee Primary Care Provider: Robbin Ross Home Meds and New Rx's Prescriptions: New oxycodone 5 mg tablet 5 mg PO Q8H MDD 15mg PRN (Reason: pain) Qty: 10 0RF Continued famotidine 40 mg tablet 40 mg PO DAILY nitroglycerin [Nitrostat] 0.4 mg tablet, sublingual 0.4 mg sublingual Q5M PRN Rx Instructions: do not exceed 3 doses per episode amlodipine 5 mg tablet 5 mg PO DAILY enalapril maleate 10 mg tablet 10 mg PO DAILY fluticasone propionate 50 mcg/actuation blister with device 2 inh inhalation DAILY metoprolol succinate 200 mg tablet extended release 24 hr 200 mg PO DAILY pravastatin 40 mg tablet 80 mg PO DAILY epinephrine [EpiPen] 0.3 mg/0.3 mL auto-injector 0.3 mg IM ONCE Patient Comments: last took 2 years Rx Instructions: as a single dose; may repeat once Mounjaro 10 mg/0.5 mL pen injector 10 mg subcut QWEEK ketoconazole 2 % cream 1 applic topical DAILY Qty: 60 5RF Rx Instructions: Apply to toenails once daily; apply separately from Urea. cetirizine [Zyrtec] 10 mg tablet 10 mg PO DAILY PRN Emergen-C Immune Plus 1,000 mg powder effervescent in packet 1 packet PO DIRECTED PRN meloxicam 15 mg tablet 15 mg PO DAILY Qty: 30 0RF acetaminophen 500 mg tablet 1,000 mg PO TID Qty: 90 0RF pantoprazole 40 mg tablet,delayed release (DR/EC) 40 mg PO DAILY Qty: 14 0RF aspirin [Adult Low Dose Aspirin] 81 mg tablet,delayed release (DR/EC) 81 mg PO DAILY Discharge Instructions Additional Instructions: Knee Manipulation Discharge Instructions Activity: You should begin moving as soon as possible. You may work on flexion but also equally maintain extension. You may bear weight as tolerated, using crutches only for support/comfort. You should apply ice to help with swelling and elevate when possible (especially in the first few days). Medications: - You have been prescribed oxycodone for breakthough paon. - Recommend to continue to take up to 1000mg of Acetaminophen (Tylenol) evyer 8 hours and 15mg of meloxicam daily as needed. Follow-up: 7-10 days Stand Alone Forms: Portal Information Referrals: Carlos Cee MD [ [facility] STAFF PHYSICIAN, Orthopaedic Surgical] Equipment/Supplies: Partial Weight Bearing Crutches Activity:: Activity as Tolerated Diet:: As Tolerated Discharge Orders Discharge Orders: Discharge Order (Routine); Ordered 08/19/25 Ordered By: Daniel Rojo DS: Diagnosis Discharge Diagnosis (1) Arthrofibrosis of total knee replacement: Status: Acute
--- NOTE | 2025-08-19 11:42 | W.PREOPHP ---
Assessment and Plan Assessment and plan (1) Arthrofibrosis of total knee replacement: Status: Acute Assessment and plan: Eddie is a 64-year-old who is status post left knee replacement which has been complicated by postoperative stiffness. For this reason I have offered manipulation under anesthesia. I discussed the technical details of the surgery. I reviewed the risks to include hemarthrosis, pain, recurrent stiffness, fracture. Despite these risk, he elects to proceed. History of Present Illness History of Present Illness Chief Complaint: Left knee arthrofibrosis Narrative: Eddie is a 64-year-old who is status post left knee replacement. He had significant stiffness preoperatively and has continued to struggle with stiffness postoperatively. Given his restriction in motion I recommended a manipulation under anesthesia. Please see the previous office note as well as physical therapy notes for complete detailed history. Review of Systems All systems reviewed & are unremarkable except as noted in HPI and below PFSH All Active Problems Arthrofibrosis of total knee replacement (Acute) LEFT S/P MAYI: 08/19/2025 Cellulitis of left lower leg (Acute) History of total left knee replacement (Acute) Allergic rhinitis (Acute) Adjustment disorder (Chronic) Nicotine dependence (Acute) Hyperlipemia (Acute) Left knee DJD (Chronic) Peripheral vascular disease (Chronic) Edema (Acute) Degeneration of cervical intervertebral disc (Acute) Obesity (Chronic) Blister (nonthermal), right foot, initial encounter (Acute) Ingrown toenail (Acute) Type 2 diabetes mellitus (Acute) Corns and callosities (Acute) Toe pain, left (Acute) Toe pain, right (Acute) CAD (coronary artery disease) (Chronic) Hypercholesterolemia (Acute) Hypertension (Chronic) Onychomycosis (Acute) GERD (gastroesophageal reflux disease) (Chronic) Nail dystrophy (Acute) Surgical History History of arthroscopy of left knee (05/12/19) History of angioplasty cardiac angioplasty with stents 2000-Follows up with cardiology annually with Dr. Herrera at [facility] 03/2025 was last follow up per History of eye surgery History of cholecystectomy Family History Mother Colon cancer Bipolar 1 disorder Father Lung cancer Brother Cardiomyopathy Social History Smoking/Tobacco Use Status: Former Tobacco Use Quit Date: 09/17/04 Smoking risk assessment performed?: Yes Alcohol Intake: current Alcohol Intake frequency: holidays/special occasions only Alcohol type: beer Drug use: Occasionally Substance use type: marijuana Details: Gummies: t-4 . Alcohol: unknown Household members: spouse Housing: house Number of Children: 3 current occupation: disabled What is your relationship status?: Panel score (0-1 are the most socially isolated patients): 1 Do you feel safe at home: Yes Do you feel safe in your relationship?: Yes Additional Social history: UTAP Meds Allergies and Home Medications Allergies Allergy/AdvReac Type Severity Reaction Status Date / Time bee venom protein (honey bee) Allergy Severe Anaphylaxis Verified 08/19/25 11:48 Home Medications ?Medication ?Instructions ?Recorded ?Confirmed ?Type amlodipine 5 mg tablet 5 mg PO DAILY 08/08/22 08/19/25 History famotidine 40 mg tablet 40 mg PO DAILY 08/08/22 08/19/25 History nitroglycerin 0.4 mg sublingual 0.4 mg sublingual Q5M PRN 08/08/22 08/19/25 History tablet (Nitrostat) metoprolol succinate 200 mg 200 mg PO DAILY 03/15/23 08/19/25 History tablet,extended release 24 hr enalapril maleate 10 mg tablet 10 mg PO DAILY 11/14/23 08/19/25 History fluticasone propionate 50 2 inh inhalation DAILY 06/09/24 08/19/25 History mcg/actuation blister powder for inhalation epinephrine 0.3 mg/0.3 mL 0.3 mg IM ONCE 05/29/25 08/19/25 History injection, auto-injector (EpiPen) tirzepatide 10 mg/0.5 mL 10 mg subcut QWEEK 05/29/25 08/10/25 History subcutaneous pen injector (Mounjaro) ketoconazole 2 % topical cream 1 applic topical DAILY #60 grams 06/02/25 08/19/25 Rx ascorbic acid 1,000 1 packet PO DIRECTED PRN 06/05/25 08/19/25 History tr-gekffyqkplft-jbjgievz powder effervescent pack (Emergen-C Immune Plus) cetirizine 10 mg tablet (Zyrtec) 10 mg PO DAILY PRN 06/05/25 08/19/25 History pravastatin 40 mg tablet 80 mg PO DAILY 06/05/25 08/19/25 History acetaminophen 500 mg tablet 1,000 mg (2 x 500 mg) PO TID #90 06/26/25 08/19/25 Rx tabs aspirin 81 mg tablet,delayed 81 mg PO DAILY 06/26/25 08/19/25 History release (Adult Low Dose Aspirin) pantoprazole 40 mg tablet,delayed 40 mg PO DAILY #14 tabs 06/26/25 08/10/25 Rx release meloxicam 15 mg tablet 15 mg PO DAILY #30 tabs 08/06/25 08/19/25 Rx docusate sodium 100 mg capsule 100 mg PO BID 08/19/25 08/19/25 History (Colace) hydrochlorothiazide 25 mg tablet mg 08/19/25 History hydrocodone 7.5 mg-acetaminophen 1 tab PO BID 08/19/25 08/19/25 History 300 mg tablet oxycodone 5 mg tablet 5 mg PO Q8H PRN pain #10 tabs 08/19/25 Rx Exam Const General: cooperative, healthy appearing, comfortable and no acute distress Resp Effort & Inspection: normal respiratory effort Auscultation: clear to auscultation bilaterally Cardio Rate: regular rate Rhythm: regular rhythm
[2025-08-19] MEDS: Celecoxib 200 MG CAP 400 MG PO (12:07)
[2025-08-19] MEDS: Acetaminophen 500 MG TAB 1000 MG PO (12:07)
--- NOTE | 2025-08-19 12:27 | W.ANESPRE ---
General Info Date of Service Date Performed: 08/19/25 Height: 5 ft 10 in Weight: 121.926 kg Body Mass Index (BMI): 38.5 Surgical Procedure: Operation Date: 08/19/25 14:40 Proposed Procedure Side Surgeon p Knee Manipulation of Knee Left Carlos Cee MD Meds Allergies and Home Medications Allergies Allergy/AdvReac Type Severity Reaction Status Date / Time bee venom protein (honey bee) Allergy Severe Anaphylaxis Verified 08/19/25 11:48 Home Medication ?Medication ?Instructions ?Recorded amlodipine 5 mg tablet 5 mg PO DAILY 08/08/22 famotidine 40 mg tablet 40 mg PO DAILY 08/08/22 nitroglycerin 0.4 mg sublingual 0.4 mg sublingual Q5M PRN 08/08/22 tablet (Nitrostat) metoprolol succinate 200 mg 200 mg PO DAILY 03/15/23 tablet,extended release 24 hr enalapril maleate 10 mg tablet 10 mg PO DAILY 11/14/23 fluticasone propionate 50 2 inh inhalation DAILY 06/09/24 mcg/actuation blister powder for inhalation epinephrine 0.3 mg/0.3 mL 0.3 mg IM ONCE 05/29/25 injection, auto-injector (EpiPen) tirzepatide 10 mg/0.5 mL 10 mg subcut QWEEK 05/29/25 subcutaneous pen injector (Mounjaro) ketoconazole 2 % topical cream 1 applic topical DAILY #60 grams 06/02/25 ascorbic acid 1,000 1 packet PO DIRECTED PRN 06/05/25 fv-nxtshezizqvd-vjdmtmbp powder effervescent pack (Emergen-C Immune Plus) cetirizine 10 mg tablet (Zyrtec) 10 mg PO DAILY PRN 06/05/25 pravastatin 40 mg tablet 80 mg PO DAILY 06/05/25 acetaminophen 500 mg tablet 1,000 mg (2 x 500 mg) PO TID #90 06/26/25 tabs aspirin 81 mg tablet,delayed 81 mg PO DAILY 06/26/25 release (Adult Low Dose Aspirin) pantoprazole 40 mg tablet,delayed 40 mg PO DAILY #14 tabs 06/26/25 release meloxicam 15 mg tablet 15 mg PO DAILY #30 tabs 08/06/25 docusate sodium 100 mg capsule 100 mg PO BID 08/19/25 (Colace) hydrochlorothiazide 25 mg tablet mg 08/19/25 hydrocodone 7.5 mg-acetaminophen 1 tab PO BID 08/19/25 300 mg tablet oxycodone 5 mg tablet 5 mg PO Q8H PRN pain #10 tabs 08/19/25 Current Visit Medications: Current Medications Generic Name Dose Route Start Last Admin Trade Name Freq PRN Reason Stop Dose Admin Acetaminophen 1,000 mg 08/19/25 06:00 08/19/25 12:07 Acetaminophen 500 Mg Tab PO 08/19/25 16:00 1,000 mg TODAY JUAN C Administration Acetaminophen 650 mg 08/19/25 11:36 Acetaminophen 325 Mg Tab PO 09/18/25 11:35 Q4H PRN PRN Celecoxib 400 mg 08/19/25 06:00 08/19/25 12:07 Celecoxib 200 Mg Cap PO 08/19/25 23:59 400 mg PREOP JUAN C Administration Ringer's Solution 1,000 mls @ 80 mls/hr 08/19/25 06:00 IV 08/19/25 23:59 INFUSION JUAN C Oxycodone/Acetaminophen 1 tab 08/19/25 11:36 Oxycodone 5 Mg/Acetaminophen 325 Mg Tab PO 09/18/25 11:35 Q4H PRN PRN Pain Sodium Chloride 0 ml 08/19/25 06:00 Normal Saline Flush 10 Ml Syr IV 08/19/25 23:59 PRN PRN Sodium Chloride 0 ml 08/19/25 06:00 Normal Saline 10 Ml Vial IJ 08/19/25 23:59 DIRECTED PRN Sterile Water 0 ml 08/19/25 06:00 Water,Injection,Sterile 10 Ml Vial IJ 08/19/25 23:59 DIRECTED PRN PFSH Active Problems Active Problems: Problem Status Onset Code Arthrofibrosis of total knee replacement Acute T84.82XA Cellulitis of left lower leg Acute L03.116 History of total left knee replacement Acute Z96.652 Allergic rhinitis Acute J30.9 Adjustment disorder Chronic F43.20 Nicotine dependence Acute F17.200 Hyperlipemia Acute E78.5 Left knee DJD Chronic M17.12 Peripheral vascular disease Chronic I73.9 Edema Acute R60.9 Degeneration of cervical intervertebral disc Acute M50.30 Obesity Chronic E66.9 Blister (nonthermal), right foot, initial encounter Acute S90.821A Ingrown toenail Acute L60.0 Type 2 diabetes mellitus Acute E11.9 Corns and callosities Acute L84 Toe pain, left Acute M79.675 Toe pain, right Acute M79.674 CAD (coronary artery disease) Chronic I25.10 Hypercholesterolemia Acute E78.00 Hypertension Chronic I10 Onychomycosis Acute B35.1 GERD (gastroesophageal reflux disease) Chronic K21.9 Nail dystrophy Acute L60.3 Surgical History Surgical History History of arthroscopy of left knee (05/12/19) History of angioplasty cardiac angioplasty with stents 2000-Follows up with cardiology annually with Dr. Herrera at [facility] 03/2025 was last follow up per History of eye surgery History of cholecystectomy Tobacco Smoking/Tobacco Use Status: Former Tobacco Use Passive smoking exposure: No Alcohol Alcohol Intake: current Alcohol intake frequency: holidays/special occasions only Alcohol type: beer Substance Use Substance use: Occasionally Substance use type: marijuana Details: Gummies: t-4 . Alcohol: unknown Vital Signs and Lab Results Vital Signs Most Recent Vital Signs in EMR: Most Recent Vital Signs Temp Pulse Resp BP Pulse Ox 36.1 C L 75 16 138/82 96 08/19/25 11:57 08/19/25 11:57 08/19/25 11:57 08/19/25 11:57 08/19/25 11:57 Point of Care Results Point of Care Results: Finger Stick Blood Glucose 90 08/19/25 11:34 Anesthesia Assessment and Plan Anesthesia History Personal History: No History of Anesthesia Complications Family History: No Family History of Anesthesia Complications Exercise Tolerance Exercise Tolerance: Metabolic Equivalents>4 Pertinent Negatives Pertinent Negatives: No Symptoms of GERD, No Major Cardiovascular Symptoms or Complaints, No Major Pulmonary Symptoms or Complaints and No History of CVA/TIA Cardiac & Pulmonary Exam Cardiac Exam: Normal S1/S2 Heart Sounds Pulmonary Exam: Clear Bilateral Breath Sounds Implantable Cardiac Device Does patient have a Pacemaker or an ICD?: No Airway Exam Known Difficult Airway: No Mallampati Class: 2 Mouth Opening: Normal (> 3cm) Thyromental Distance: Less than 3 cm Neck Range of Motion: Full ROM Neck Circumference: Normal Teeth Condition: Normal Dentition and Generalized Poor Dentition ASA Classification ASA Score: ASA 3 Emergency Case?: No NPO Status NPO Status: NPO Clears >2 hours, Solids >8 hours Anesthesia Plan Resuscitation Status: Full Code Anesthesia Technique: General Anesthesia Airway Planned: Natural Airway Monitors Used: Standard Monitors
[2025-08-19] MEDS: Lactated Ringers 1,000 ML 80 ML IV (12:30)
[2025-08-19] MEDS: Bupivacaine 0.25% Pres-Free 30 ML VIAL (13:05)
[2025-08-19] MEDS: fentaNYL 100 MCG/2 ML VIAL IVP (13:30)
--- NOTE | 2025-08-19 13:33 | W.ANESPOSTOP ---
Postoperative Evaluation Date, Time and Location Date Performed: 08/19/25 Time Performed: 13:34 Patient Location: PACU Vital Signs Most Recent Imported Vital Signs: Most Recent Vital Signs Temp Pulse Resp BP Pulse Ox 36.8 C 75 16 138/82 96 08/19/25 13:20 08/19/25 11:57 08/19/25 11:57 08/19/25 11:57 08/19/25 11:57 Pain Score Most Recent Pain Score: Most Recent Pain Score Pain Level 7 08/19/25 13:20 Assessment Mental Status: Awake (Alert & Oriented to Patient Baseline) Airway and Respiratory Function: Patent airway with normal (patient baseline) respiratory exam Cardiovascular Function: Hemodynamically Stable Hydration Status: Adequately Hydrated Nausea & Vomiting: No Nausea or Vomiting Pain: Pain is Moderate or Severe Postoperative Pain Management: Pain being addressed with medication Peripheral Nerve Block: Patient did not receive a nerve block
--- NOTE | 2025-08-19 20:52 | ROE_ITS ---
Operative Note Operative Note PRE-OP DIAGNOSIS: Left Knee Arthrofibrosis s/p Replacement POST-OP DIAGNOSIS: same PROCEDURE: Left Knee Manipulation Under Anesthesia SURGEON: Carlos Cee ANESTHESIA TYPE: General:No Airway Refer to Anesthesia Record ESTIMATED BLOOD LOSS: 0 PATHOLOGY: none sent TOURNIQUET TIME: 0 COMPLICATIONS: None Patient was transported to: PACU Patient's condition: stable Indications: Eddie is a 64 year old male who is s/p knee replacement. Despite diligent work with physical therapy there has been continued stiffness. To assist with mobility, I offered a manipulation under anesthesia. I discussed the risks of the procedure to include bleeding, pain, recurrent stiffness, fracture. Despite these risks, she elects to proceed. Findings: Preoperative flexion = 85 Postoperative flexion = 120 Preoperative extension = 5 Postoperative extension = 5 Procedure Description: The patient was greeted in the preoperative holding area. Identity was confirmed and the correct side was identified and marked. The consent was reviewed the patient and signed. History and physical was updated. Eddie was taken back to the operating room. The left side was identified as the correct side. A timeout was performed for safe surgery. A general anesthetic was administered. The knee was then prepped with ChloraPrep and an intra-articular injection of 10 cc of 0.25% bupivacaine was administered. Once a muscle relaxant was fully on board manipulation was performed. Pre-man ipulation range of motion was noted. A gentle manipulation was performed first into flexion using a very small lever arm and adding gentle and progressive pressure to the tibia. There is audible and palpable crepitus with improvement in range of motion. This was cycled and repeated multiple times. The leg was then brought into extension and gentle anterior posterior pressure was applied with a supported hand behind the proximal tibia and knee. This was brought back into flexion was once again manipulated with gentle and progressive pressure. Final range of motion numbers were recorded. A Band-Aid was applied to the injection site. He was awakened from anesthesia and taken to the PACU in stable condition. Date of Procedure: 08/19/25
== END 2025-08-19 14:50 | disposition home or self-care (01) ==
PROVIDERS: PCP Internal Medicine; Visit Provider Student in an Organized Health Care Education/Training Program
PROC: (CPT 27570; principal; 2025-08-19 14:30)
DX: T84.82XA Fibrosis due to internal orthopedic prosthetic devices, implants and grafts, initial encounter (principal); Z96.652 Presence of left artificial knee joint
CPT/HCPCS: 27570; J0330; J0665; J2704; J3010

== ENCOUNTER → 2025-08-25 08:03 | Outpatient (BNVA) | payer MEDICARE, SELFPAY | PROVIDERS: PCP Internal Medicine; Referring Provider Internal Medicine; Visit Provider Podiatrist | DX: L60.3 Nail dystrophy (principal); M79.674 Pain in right toe(s); M79.675 Pain in left toe(s); E11.8 Type 2 diabetes mellitus with unspecified complications; I73.89 Other specified peripheral vascular diseases; B35.1 Tinea unguium; L60.2 Onychogryphosis; R09.89 Other specified symptoms and signs involving the circulatory and respiratory systems; L65.9 Nonscarring hair loss, unspecified; I83.93 Asymptomatic varicose veins of bilateral lower extremities; R60.0 Localized edema; L53.8 Other specified erythematous conditions; R23.4 Changes in skin texture; L60.8 Other nail disorders; L85.8 Other specified epidermal thickening; G62.9 Polyneuropathy, unspecified | CPT/HCPCS: 11056; 11721 ==

== ENCOUNTER 2025-09-03 08:18 | Outpatient (CLI) | payer MEDICARE, SELFPAY ==
[2025-09-03 15:55] LABS: ALT 41 U/L (10-49); AST 32 U/L (<34); Albumin 4.7 g/dL (3.2-5.0); Alkaline Phosphatase 74 U/L (46-116); Anion Gap 12.2 mmol/L (3-11); BUN 17 mg/dL (9-23); Bilirubin, Total 0.5 mg/dL (0.2-1.2); CO2 25.8 mmol/L (20.0-31.0); Calcium 9.3 mg/dL (8.3-10.6); Chloride 103 mmol/L (98-107); Cholesterol 138 mg/dL (<200); Glucose 114 mg/dL (74-106); HDL Cholesterol 33 mg/dL (>or=40); Potassium 3.9 mmol/L (3.5-5.1); Sodium 141 mmol/L (136-145); Total Protein 7.7 g/dL (5.7-8.2)
== END 2025-09-03 08:19 | disposition home or self-care (01) ==
LOC: LBO 08:19
PROVIDERS: PCP Internal Medicine; Visit Provider Nurse Practitioner
DX: I10 Essential (primary) hypertension (principal)
CPT/HCPCS: 36415; 80053; 80061